=== PATIENT | female | born 1995 | race Caucasian/White ===

== ENCOUNTER 2016-07-30 17:11 | Emergency (ER) | payer OTHER ==
--- NOTE | 2016-08-04 16:13 | ER ---
ADMIT: 07/30/2016 RM/LOC: ER [facility] MR#: [id number] [address] [id number] DIOGENES DAVIDSON [address] [place] [address] Emergency Room Report SEX: F AGE: 21 : 1995 DATE: 07/30/2016 ADDENDUM: CHIEF COMPLAINT: Drug overdose. HISTORY OF PRESENT ILLNESS: This is a 21-year-old who took 20 ibuprofen. She started feeling sick pretty soon after that and she vomited up it sounds like possibly multiple of the pills. She then cut herself on the top of her thigh, sent a text to her mom, the mom called the police and they brought her into the emergency room. [facility] labs were done. Dr. Festus carrillo at [facility] is accepting. CLINICAL IMPRESSION: Suicide attempt with drug overdose of 20 ibuprofen. NORMAN Ellison / Jose Elias Cleary MD / katl JOB #: [id number] CC: Yg Washington MD, Attending Physician Meli Parish, Family Physician
== END 2016-07-30 19:25 ==
LOC: ER 17:11
DX: S70.311A Abrasion, right thigh, initial encounter (principal); T39.312A Poisoning by propionic acid derivatives, intentional self-harm, initial encounter; Z88.8 Allergy status to other drugs, medicaments and biological substances; Z79.899 Other long term (current) drug therapy; X78.8XXA Intentional self-harm by other sharp object, initial encounter

== ENCOUNTER 2016-09-28 13:21 | Emergency (ER) | payer OTHER ==
--- NOTE | 2016-10-06 11:03 | ER ---
ADMIT: 09/28/2016 RM/LOC: ER [facility] MR#: [id number] [id number] [facility] [address] [place], [place] [address] LETYDIOGENES George [address] [place] [address] Emergency Room Report SEX: F AGE: 21 : 1995 DATE: 09/28/2016 CHIEF COMPLAINT: Vomiting and weakness. HISTORY OF PRESENT ILLNESS: This is a 21-year-old white female, who presents to the ER for evaluation with worsening symptoms of weakness, not feeling well. States she was in to see NORMAN Azar, last week, had labs completed, shows signs of hyperthyroidism. She had a followup ultrasound the next day. States the past week she has been feeling very weak and sick. She has had a single episode of vomiting that was not bloody. She is having hot flashes, difficulty sleeping. She has lost 10 pounds in the last week. She states she has mild aching abdominal pain. PAST MEDICAL HISTORY: No past medical history. MEDICATIONS: She does take medicine for depression, Wellbutrin and Lexapro. COURSE IN THE EMERGENCY ROOM: The patient was seen and examined. GENERAL: Afebrile and nontoxic. No acute distress. She is mildly lethargic. HEENT: Normocephalic and atraumatic. Eyes are noninjected, equal and reactive. No secondary signs of thyroid disease about the eye. NECK: Soft and supple. CHEST: Clear. HEART: Regular rate. No tachycardia. ABDOMEN: Soft. She does have generalized tenderness. No rebound or guarding. BACK: Normal inspection. No CVA tenderness. SKIN: Warm and dry. EXTREMITIES: Nontender. No pedal edema. NEURO: She is alert and oriented. I did phone Danisha Bermeo's office to get copies of the records. TSH was 0.27, free T4 of 0.93. Sedimentation rate was 5. She had a negative HCG. CBC and CMP were unremarkable. Thyroid ultrasound shows bilateral thyroid lobe nodules less than 5 mm, they recommended a 6-month followup ultrasound. She was referred to Dr. Burgos, Endocrinology in [place] for followup on October 31. While in the department, I did start a line on her, gave her a liter of normal saline IV as well as Zofran 4 mg IV. States she is feeling mildly improved. LABORATORY STUDIES: White count 6.7, hemoglobin 10.8, hematocrit 34.2, and platelets 236. Sodium 142, potassium 3.8, CO2 of 28, BUN 6, glucose 85, and creatinine 0.8. I had a long discussion with them about the results of laboratory studies and need for followup, expressed understanding and ready for discharge. ADMIT: 09/28/2016 RM/LOC: [facility] MR#: [id number] [address] [place] [id number] [place] [address] Emergency Room Report SEX: F AGE: 21 : 1995 IMPRESSION: 1. Mild hyperthyroidism. 2. Mild microcytic anemia. 3. Vomiting. DISPOSITION: Patient was discharged home to follow up with NORMAN Azar, as needed. Recommended that they keep the followup appointment with Dr. Burgos in October. I also recommended starting [id number] iron supplement and multivitamin [id number] as directed. Certainly increase fluids. Return with worsening signs or symptoms or follow up with Danisha. Questions sought and answered to best of my ability and the patient's satisfaction. Discharged home in stable condition. NORMAN Rodriguez / Stephon Hill MD / katl JOB #: [id number] CC: Stephon Hill MD, Attending Physician Danisha Bermeo, Family Physician
== END 2016-09-28 15:10 | disposition home or self-care (01) ==
LOC: ER 13:21
DX: E05.90 Thyrotoxicosis, unspecified without thyrotoxic crisis or storm (principal); D50.9 Iron deficiency anemia, unspecified; R11.10 Vomiting, unspecified; F32.9 Major depressive disorder, single episode, unspecified; Z90.49 Acquired absence of other specified parts of digestive tract; Z88.5 Allergy status to narcotic agent; Z79.899 Other long term (current) drug therapy